=== PATIENT | male | born 1960 | race Caucasian/White ===

== ENCOUNTER → 2021-03-25 | Outpatient (CLI) | payer BC | LOC: COL.RAD 07:24 | DX: M47.812 Spondylosis without myelopathy or radiculopathy, cervical region (principal) ==

== ENCOUNTER → 2021-04-17 | Outpatient (CLI) | payer BC | LOC: COL.RAD 08:03 | DX: M48.061 Spinal stenosis, lumbar region without neurogenic claudication (principal) ==